=== PATIENT | male | born 1960 | race Two or more races ===

== ENCOUNTER 2020-05-06 12:07 | Emergency (ER) | payer SELFPAY ==
[~2020-05-06] VITALS: Ht 170.2 cm; Wt 81.0 kg
[2020-05-06 12:12] VITALS: BP 120/69
== END 2020-05-06 13:45 | disposition home or self-care (01) ==
LOC: ER 12:07
DX: U07.1 COVID-19 (principal)
CPT/HCPCS: 99283; C9803; U0003